=== PATIENT | female | born 1970 | race Caucasian/White ===

== ENCOUNTER → 2019-12-29 | Outpatient (CLI) | payer OTHER ==
--- NOTE | 2020-01-06 11:41 | REP ---
HEPATOBILIARY NUCLEAR SCAN WITH GALLBLADDER EJECTION FRACTION HISTORY: Abdomen pain. TECHNIQUE: 6.6 mCi of Technetium-99m mebrofenin is injected and sequential anterior abdominal images are acquired. 65 minutes after the injection, the patient ingested 8 ounces of Ensure and an additional 60 minutes of dynamic imaging was acquired. Regions of interest were drawn around the gallbladder for this portion of the study to plot its ejection fraction. SCINTIGRAPHIC FINDINGS: The initial hepatocellular parenchymal uptake phase is normal and homogeneous. Intrahepatic bowel ducts are first labeled at 10 minutes. Extrahepatic bowel ducts and duodenum are labeled at 15 minutes. The gallbladder is labeled at 20 minutes and there is normal washout from the liver parenchyma into the gallbladder and small intestine. On subsequent images, the gallbladder ejection fraction is normal measured at 59%. IMPRESSION: Normal hepatobiliary nuclear scan with normal gallbladder ejection fraction. MTDD
== END ==
LOC: M RAD 07:35
PROVIDERS: ATTEND Nurse Practitioner Family
DX: R10.9 Unspecified abdominal pain (principal); R14.0 Abdominal distension (gaseous); R14.1 Gas pain; K21.9 Gastro-esophageal reflux disease without esophagitis
CPT/HCPCS: 78227; A9537

== ENCOUNTER → 2020-12-13 | Outpatient (REF) | payer OTHER ==
[2020-12-13 18:55] LABS: ALBUMIN 3.2 GM/DL (3.2-5.2); BILIRUBIN,DIRECT 0.1 MG/DL (0.0-0.2); BILIRUBIN,TOTAL 0.4 MG/DL (0.2-1.0); TOTAL PROTEIN 7.1 GM/DL (6.4-8.2)
== END ==
LOC: M LAB REF 17:57
PROVIDERS: ATTEND Internal Medicine Gastroenterology
DX: K21.9 Gastro-esophageal reflux disease without esophagitis (principal); R19.4 Change in bowel habit; Z86.010 Personal history of colon polyps

== ENCOUNTER → 2021-02-01 | Outpatient (REF) | payer OTHER ==
[2021-02-01 17:46] LABS: SOURCE, BODY FLUID LFT KNEE; SYNOVIAL FLUID COLOR PINK (COLORLESS)
[2021-02-02 18:54] LABS: CRYSTALS, BODY FLUID NONE SEEN (NONE SEEN); SOURCE, BODY FLUID CRYSTALS LFT KNEE
== END ==
LOC: M LAB REF 16:59
PROVIDERS: ATTEND Internal Medicine
DX: M70.42 Prepatellar bursitis, left knee (principal)

== ENCOUNTER → 2021-02-27 | Outpatient (REF) | payer OTHER ==
[2021-02-27 18:16] LABS: PERCENT SATURATION 30.1 % (13.2-45.0)
== END ==
LOC: M LAB REF 16:13
PROVIDERS: ATTEND Internal Medicine
DX: G25.81 Restless legs syndrome (principal); K74.60 Unspecified cirrhosis of liver

== ENCOUNTER → 2021-04-24 | Outpatient (REF) | payer OTHER | LOC: M LAB REF 16:06 | PROVIDERS: ATTEND Internal Medicine | DX: M70.42 Prepatellar bursitis, left knee (principal) ==

== ENCOUNTER → 2021-05-18 | Outpatient (REF) | payer OTHER ==
[2021-05-18 12:12] LABS: INR 0.86; PROTHROMBIN TIME 12.1 SECONDS (12.7-14.5)
== END ==
LOC: M LAB REF 11:50
PROVIDERS: ATTEND Internal Medicine
DX: D18.03 Hemangioma of intra-abdominal structures (principal)

== ENCOUNTER → 2021-09-12 | Outpatient (REF) | payer OTHER | LOC: M LAB REF 09:41 | PROVIDERS: ATTEND Physician Assistant Medical | DX: J06.9 Acute upper respiratory infection, unspecified (principal); R07.9 Chest pain, unspecified ==

== ENCOUNTER → 2021-11-20 | Outpatient (REF) | payer OTHER ==
[2021-11-20 16:35] LABS: SYNOVIAL FLUID COLOR COLORLESS (COLORLESS)
[2021-11-20 16:36] LABS: SOURCE, BODY FLUID OTHER
[2021-11-20 17:23] LABS: CRYSTALS, BODY FLUID CHOLESTEROL (NONE SEEN); SOURCE, BODY FLUID CRYSTALS OTHER
== END ==
LOC: M LAB REF 16:03
PROVIDERS: ATTEND Internal Medicine
DX: M70.42 Prepatellar bursitis, left knee (principal); M17.12 Unilateral primary osteoarthritis, left knee

== ENCOUNTER → 2021-12-27 | Outpatient (REF) | payer OTHER ==
[2021-12-27 14:50] LABS: FOLLICLE STIMULATING HORMONE 75.6 mIU/mL; LUTEINIZING HORMONE 46.5 mIU/mL
== END ==
LOC: M LAB REF 13:13
PROVIDERS: ATTEND Internal Medicine
DX: N95.1 Menopausal and female climacteric states (principal)

== ENCOUNTER → 2022-02-02 | Outpatient (REF) | payer OTHER ==
[2022-02-02 10:36] LABS: INFLUENZA A AMPLIFICATION NEGATIVE (NEGATIVE); INFLUENZA B AMPLIFICATION NEGATIVE (NEGATIVE)
== END ==
LOC: M LAB REF 09:11
PROVIDERS: ATTEND Physician Assistant Medical
DX: R05.3 Chronic cough (principal); J30.9 Allergic rhinitis, unspecified; R09.89 Other specified symptoms and signs involving the circulatory and respiratory systems; R06.02 Shortness of breath; R05.9 Cough, unspecified; R00.0 Tachycardia, unspecified

== ENCOUNTER → 2022-02-28 | Outpatient (REF) | payer OTHER ==
[2022-02-28 20:39] LABS: VITAMIN B12 LEVEL 498 PG/ML (211-911)
[2022-02-28 22:25] LABS: FOLATE > 24.0 NG/ML (>5.4)
== END ==
LOC: M LAB REF 16:25
PROVIDERS: ATTEND Physician Assistant Medical
DX: R41.3 Other amnesia (principal)

== ENCOUNTER → 2022-04-26 | Outpatient (REF) | payer OTHER ==
[2022-05-02 09:08] LABS: ANTI DOUBLE STRAND-DNA AB 14 IU/mL (0-9); ANTINUCLEAR ANTIBODIES DIRECT Positive (Negative); RNP ANTIBODIES 0.2 AI (0.0-0.9); SJOGREN'S ANTI SS-A <0.2 AI (0.0-0.9); SJOGREN'S ANTI SS-B <0.2 AI (0.0-0.9); SMITH ANTIBODIES <0.2 AI (0.0-0.9); VITAMIN B1 LEVEL WHOLE BLOOD 191.8 nmol/L (66.5-200.0); VITAMIN B6,PYRIDOXAL PHOSPHATE 6.9 ug/L (3.4-65.2); VITAMIN E(ALPHA TOCOPHEROL) 17.4 mg/L (7.0-25.1); VITAMIN E(GAMMA TOCOPHEROL) 0.4 mg/L (0.5-5.5)
== END ==
LOC: M LAB REF 12:08
PROVIDERS: ATTEND Internal Medicine
DX: R41.3 Other amnesia (principal); R51.9 Headache, unspecified

== ENCOUNTER → 2022-09-28 | Outpatient (REF) | payer OTHER ==
[2022-10-01 14:12] LABS: ANA (HEP2) Negative (.)
== END ==
LOC: M LAB REF 16:25
PROVIDERS: ATTEND Internal Medicine
DX: M25.50 Pain in unspecified joint (principal)

== ENCOUNTER → 2022-12-17 | Outpatient (REF) | payer OTHER ==
[2022-12-17 13:58] LABS: C REACTIVE PROTEIN QUANTITATIV 0.7 MG/DL (<1.0)
[2022-12-17 14:01] LABS: FOLLICLE STIMULATING HORMONE 65.9 mIU/ML
== END ==
LOC: M LAB REF 11:54
PROVIDERS: ATTEND Internal Medicine
DX: R10.2 Pelvic and perineal pain (principal)

== ENCOUNTER → 2023-01-29 | Outpatient (REF) | payer OTHER | LOC: M LAB REF 12:39 | PROVIDERS: ATTEND Internal Medicine | DX: M13.0 Polyarthritis, unspecified (principal) ==

== ENCOUNTER → 2023-05-15 | Outpatient (REF) | payer OTHER ==
[2023-05-15 15:08] LABS: C REACTIVE PROTEIN QUANTITATIV < 0.40 MG/DL (<1.0); URIC ACID 3.7 MG/DL (3.1-7.8)
[2023-05-15 15:11] LABS: IRON (FE) 111 UG/DL (50-170); PERCENT SATURATION 34.2 % (13.2-45.0); TOTAL IRON BINDING CAPACITY 325 UG/DL (250-425)
[2023-05-15 15:53] LABS: RHEUMATOID FACTOR QUANT < 3.5 IU/ML (<14)
[2023-05-15 15:55] LABS: TOTAL 25(OH) VITAMIN D 42.9 NG/ML (20.0-100.0); VITAMIN B12 LEVEL 483 PG/ML (211-911)
== END ==
LOC: M LAB REF 11:39
PROVIDERS: ATTEND Internal Medicine
DX: M13.0 Polyarthritis, unspecified (principal); Z98.84 Bariatric surgery status; R55 Syncope and collapse